=== PATIENT | female | born 1990 | race Caucasian/White ===

== ENCOUNTER 2016-12-22 01:21 | Emergency (ER) | payer OTHER ==
[~2016-12-22] VITALS: Ht 175.3 cm; Wt 73.0 kg
[~2016-12-22 01:21] MED LIST: 12 HOUR DECONG120 M1 PO; ADVAIR 100/501 DISK IH; AMOXICILLIN250 MG PO; AUGMENTIN875 MG PO; CLONIDINE HCL0.1 MG PO; Motrin PO; NAPROSYN500 MG PO; NO HOME MEDS; NOHOMEMEDS; PROVENTIL17 GM IH; SINGULAIR10 MG PO; TRAMADOL HCL50 MG PO; TRAZODONE HCL50 MG PO; VALIUM5 MG PO; [UNRECOGNIZED DRUG - REMARK]
[2016-12-22 02:04] VITALS: BP 108/54
== END 2016-12-22 02:07 | disposition home or self-care (01) ==
LOC: EME 01:21
DX: F41.0 Panic disorder [episodic paroxysmal anxiety] (principal); J45.909 Unspecified asthma, uncomplicated; F90.9 Attention-deficit hyperactivity disorder, unspecified type; F17.200 Nicotine dependence, unspecified, uncomplicated; Z85.41 Personal history of malignant neoplasm of cervix uteri
CPT/HCPCS: 99281; 99284